=== PATIENT | female | born 1960 | race Asian ===

== ENCOUNTER 2020-07-27 20:26 | Emergency (ER) | payer OTHER ==
[~2020-07-27] VITALS: Ht 162.6 cm; Wt 63.5 kg
[2020-07-27 20:40] VITALS: TEMP 98.4
[2020-07-27 22:15] VITALS: BP 148/88
== END 2020-07-27 22:15 | disposition home or self-care (01) ==
LOC: ED 20:26
DX: S46.811A Strain of other muscles, fascia and tendons at shoulder and upper arm level, right arm, initial encounter (principal); S39.012A Strain of muscle, fascia and tendon of lower back, initial encounter; S80.01XA Contusion of right knee, initial encounter; W18.09XA Striking against other object with subsequent fall, initial encounter; Y92.512 Supermarket, store or market as the place of occurrence of the external cause
CPT/HCPCS: 96372; 99283; J1885